=== PATIENT | male | born 1945 | race Caucasian/White ===

== ENCOUNTER 2018-09-10 12:34 | Emergency (ER) | payer OTHER, SELFPAY ==
[2018-09-10 12:47] VITALS: BP 186/99; PULSE 75; RESP 18; TEMP 37.1; O2SAT 97; BMI 29.5
--- NOTE | 2018-09-10 12:57 | ED_ITS ---
HPI - General Adult General Chief complaint: Hypertension Stated complaint: HIGH BP BETWEEN 170 AND 180, IRREGULAR HEARTBEAT Time Seen by Provider: 09/10/18 12:49 Source: patient Mode of arrival: ambulatory Limitations: no limitations History of Present Illness HPI narrative: Patient is a 73 year old male who presents with hypertension. He was at his doctor's office yesterday getting basal cell carcinoma removed he noticed it was elevated then of about 160. This morning he woke up took his blood pressure it was 170. He has no headache no chest pain of breath. He overall has been feeling well. He has been on the same dose of Benicar for multiple years without any changes need. His doctors in [place] he does not see him on a regular basis. He lives in [place] for 4 years but has not tried to get a physician here. He overall was very nervous about his blood pressure being elevated 2 days in a row. He has no headache no numbness no tingling. Related Data Home Medications Medication Instructions Recorded Confirmed olmesartan-hydrochlorothiazide 1 tab PO DAILY #0 06/25/16 09/10/18 [Benicar HCT] esomeprazole magnesium 40 mg 40 mg PO DAILY 12/23/17 09/10/18 capsule,delayed release acyclovir 400 mg PO DAILY 09/10/18 09/10/18 fluorouracil 1 applic TOPICAL DIRECTED 09/10/18 09/10/18 ketoconazole 1 applic TOPICAL DIRECTED 09/10/18 09/10/18 Allergies Allergy/AdvReac Type Severity Reaction Status Date / Time No Known Drug Allergies Allergy Verified 09/10/18 12:53 Review of Systems Review of Systems ROS Unobtainable: All systems reviewed & are unremarkable except as noted in HPI and below Constitutional Denies chills, Denies fever(s), Denies lethargy and Denies weakness Eyes Denies diplopia and Denies eye discharge Comments: Left subconjunctival hematoma ENT Ears, Nose, Mouth, and Throat: Denies change in voice, Denies neck pain and Denies sore throat Cardiovascular Denies chest pain, Denies irregular heart rhythm, Denies lightheadedness, Denies palpitations, Denies dyspnea, Denies dyspnea on exertion and Denies orthopnea Respiratory Denies cough, Denies dyspnea, Denies dyspnea on exertion and Denies wheezing Gastrointestinal Gastrointestinal: Denies abdominal pain, Denies change in bowel habits, Denies diarrhea, Denies nausea and Denies vomiting Genitourinary Denies hematuria, Denies flank pain, Denies urinary incontinence and Denies urinary urgency Musculoskeletal Denies neck pain Integumentary/Breasts Reports as per HPI Neurologic Denies weakness Endocrine Denies palpitations Allergic/Immunologic Denies wheezing PFSH Social History Smoking Status: Never smoker alcohol intake: current Social History Smoking Status: Never smoker alcohol intake: current Exam Initial Vital Signs Initial Vital Signs: Vital Signs Temperature 98.7 F 09/10/18 12:47 Pulse Rate 75 09/10/18 12:47 Respiratory Rate 18 09/10/18 12:47 Blood Pressure 186/99 H 09/10/18 12:47 Pulse Oximetry 97 09/10/18 12:47 GENERAL: Pleasant alert well-appearing elderly male no apparent distress and in no acute distress. HEENT: Head atraumatic,EOMI, pupils reactive, face symmetric, neck is supple CARDIOVASCULAR: Regular rate and rhythm without murmurs, rubs or gallops. RESPIRATORY: Breath sounds equal bilaterally, no wheezes rales or rhonchi. ABDOMEN: Soft, nontender. Normoactive bowel sounds all 4 quadrants. No guarding or rebound. EXTREMITIES: Normal range of motion, no clubbing or edema. Neurovascularly intact NEUROLOGICAL: Alert and oriented x4.Normal gait and speech. Cranial nerves II through XII grossly intact. Good [id number], good [id number], strength equal bilaterally, no dysarthria or aphasia, sensation in tact to soft touch bilaterally, no visual changes, no facial droop SKIN: Warm, dry, no laceration, no petechiae, no rashes or lesions. Course Orders Ordered: ED Orders 09/10/18 13:42 Complete Blood Count AUTO DIFF Stat Comprehensive Metabolic Panel Stat Lipase Stat Partial Thromboplastin Time Stat Prothrombin Time INR Stat Vital Signs - 8 hr 09/10/18 12:47 09/10/18 13:13 09/10/18 13:30 Temperature 98.7 F Pulse Rate 75 67 66 Respiratory Rate 18 Blood Pressure 186/99 H Blood Pressure [Right Arm] 158/82 H 157/82 H Pulse Oximetry 97 09/10/18 14:36 Temperature Pulse Rate 67 Respiratory Rate Blood Pressure Blood Pressure [Right Arm] 145/86 H Pulse Oximetry Medical Decision Making Lab Data Lab results reviewed: Yes I reviewed the patient's lab results. Result diagrams: 09/10/18 13:42 09/10/18 13:42 Lab Results 09/10/18 09/10/18 09/10/18 Range/Units 13:42 13:42 13:42 WBC 7.0 (4.5-11.0) X10^3/uL RBC 5.31 (4.5-5.9) X10^6/uL Hgb 16.8 (13.5-17.5) g/dL Hct 49.5 (41-53) % MCV 93.1 (80-100) fL MCH 31.7 (26-34) PG MCHC 34.0 (30-36) % RDW 14.5 (11.6-14.8) % Plt Count 146 L (150-400) X10^3/uL Neut % (Auto) 57.4 (50-75) % Lymph % (Auto) 28.2 (25-40) % [place] % (Auto) 11.1 (3-14) % Eos % (Auto) 2.3 (2-4) % Baso % (Auto) 1.0 (0-2) % Neut # (Auto) 4000 (5287-5204) /uL Lymph # (Auto) 2000 (3710-3177) /uL [place] # (Auto) 800 (0-900) /uL Eos # (Auto) 200 (0-450) /uL Baso # (Auto) 100 (0-100) /uL PT 12.2 (10.1-12.7) SECONDS INR 1.1 (0.9-1.3) APTT 34 (26.4-36.2) SECONDS Sodium 137 (137-145) mmol/L Potassium 4.2 (3.4-5.1) mmol/L Chloride 99 (98-107) mmol/L Carbon Dioxide 29 (22-32) mmol/L BUN 17 (9-20) mg/dL Creatinine 0.70 (0.66-1.25) mg/dL Estimated GFR > 60.0 (>60) mL/min BUN/Creatinine Ratio 24.3 H (6-22) Glucose 96 (80-110) mg/dL Calcium 9.3 (8.4-10.2) mg/dL Total Bilirubin 0.8 (0.2-1.3) mg/dL AST 80 H (17-59) IU/L ALT 123 H (21-72) IU/L Alkaline Phosphatase 110 (38-126) U/L Total Protein 7.8 (6.3-8.2) g/dL Albumin 4.5 (3.5-5.0) g/dL Globulin 3.3 (1.7-4.1) g/dL Albumin/Globulin Ratio 1.4 (1.0-2.8) Lipase 41 (23-300) U/L ECG Data Attestation: I personally reviewed and interpreted this ECG as follows: Prior ECG tracings: available for review Interpretation: Normal sinus rhythm rate [address] changes or T-wave inversions no priors to compare MDM Narrative Medical decision making narrative: Patient's blood pressure has actually improved since being in the ED he is asymptomatic except for his number. He and I discussed getting a local PCP to manage it. At this time he is completely asymptomatic without chest pain or headache. we discussed how to monitor at home and recorded. We also discussed warning symptoms and when to return to the ED. Discharge Plan Departure Patient Disposition: Home Clinical Impression: Hypertension Qualifiers: Hypertension type: essential hypertension Qualified Code(s): I10 - Essential (primary) hypertension Discharge Date/Time: 09/10/18 14:37 Interventions: ED Discharge Assessment Last Done: 09/10/18 14:36 Instructions: DI for High Blood Pressure Activity Restrictions/Additional Instructions: *You have been diagnosed with hypertension *What to do: Blood work today is reassuring. I recommend that you take your blood pressure all 1 daily same time every day and recorded. Her blood pressure medications may need to be adjusted by your PCP *Continue to take medications as directed *Follow up with your primary care provider in 2-3 days *Return to ER if you should have chest pain headache, weakness or any new, worsening or concerning symptoms Prescriptions: No Action esomeprazole magnesium [Nexium] 40 mg capsule,delayed release(DR/EC) 40 mg PO DAILY RF: 0 olmesartan-hydrochlorothiazide [Benicar HCT] 40 MG/12.5 MG tablet 1 tab PO DAILY Qty: 0 RF: 0 ketoconazole 2 % shampoo 1 applic topical DIRECTED RF: 0 fluorouracil 5 % cream 1 applic topical DIRECTED RF: 0 acyclovir 400 mg tablet 400 mg PO DAILY RF: 0 Referrals: [facility] [Provider Group] [facility] [Provider Group] [facility] [Provider Group]
[2018-09-10 13:13] VITALS: BP 158/82; PULSE 67
--- NOTE | 2018-09-10 13:19 | PC.NURSE ---
Two failed attempts at IV. As soon as patient was poked, he demanded they be removed and yelled at this RN. Charge nurse and Dr. Ko notified. Pt playing on phone and appears in no acute distress. Still denies any symptoms.
[2018-09-10 13:30] VITALS: BP 157/82; PULSE 66
[2018-09-10 13:51] LABS: Add Manual Diff / Slide Review NO; Basophils Absolute Auto 100 /uL (0-100); Eosinophils Absolute Auto 200 /uL (0-450); Eosinophils Percent Auto 2.3 % (2-4); Hematocrit 49.5 % (41-53); Hemoglobin 16.8 g/dL (13.5-17.5); Lymphocytes Absolute Auto 2000 /uL (1100-4500); Lymphocytes Percent Auto 28.2 % (25-40); Mean Corpuscular Hemoglobin 31.7 PG (26-34); Mean Corpuscular Volume 93.1 fL (80-100); Monocytes Absolute Auto 800 /uL (0-900); Monocytes Percent Auto 11.1 % (3-14); Neutrophils Absolute Auto 4000 /uL (1500-7000); Neutrophils Percent Auto 57.4 % (50-75); Platelet Count 146 X10^3/uL (150-400); Red Blood Cell Count 5.31 X10^6/uL (4.5-5.9); Red Cell Distribution Width 14.5 % (11.6-14.8)
[2018-09-10 13:59] LABS: INR 1.1 (0.9-1.3); Prothrombin Time 12.2 SECONDS (10.1-12.7)
[2018-09-10 14:02] LABS: PTT Partial Thromboplastin Tim 34 SECONDS (26.4-36.2)
[2018-09-10 14:04] LABS: Alanine Aminotransferase 123 IU/L (21-72); Albumin 4.5 g/dL (3.5-5.0); Albumin Globulin Ratio 1.4 (1.0-2.8); Alkaline Phosphatase 110 U/L (38-126); Aspartate Aminotransferase 80 IU/L (17-59); BUN Creatinine Ratio 24.3 (6-22); Bilirubin Total 0.8 mg/dL (0.2-1.3); Blood Urea Nitrogen 17 mg/dL (9-20); Calcium 9.3 mg/dL (8.4-10.2); Carbon Dioxide 29 mmol/L (22-32); Chloride 99 mmol/L (98-107); Estimated Glomerular Filt Rate > 60.0 mL/min (>60); Globulin 3.3 g/dL (1.7-4.1); Glucose 96 mg/dL (80-110); HEMOLYSIS < 15 (0-50); Lipase 41 U/L (23-300); Potassium 4.2 mmol/L (3.4-5.1); Sodium 137 mmol/L (137-145); Total Protein 7.8 g/dL (6.3-8.2)
[2018-09-10 14:36] VITALS: BP 145/86; PULSE 67
== END 2018-09-10 14:37 | disposition home or self-care (01) ==
PROVIDERS: Emergency Provider Emergency Medicine
DX: I10 Essential (primary) hypertension (principal); R00.8 Other abnormalities of heart beat
CPT/HCPCS: 80053; 83690; 85025; 85610; 85730; 93005; 93010; 99283

== ENCOUNTER → 2019-07-21 08:26 | Outpatient (CLI) | payer OTHER, SELFPAY ==
--- NOTE | 2019-07-21 08:48 | DI.RAD.S_ITS ---
PROCEDURE: XR CHEST 2V INDICATIONS: cough TECHNIQUE: 2 views of the chest were acquired. COMPARISON: None. FINDINGS: Surgical changes and devices: None. Lungs and pleura: Lungs are clear. No pleural effusions or pneumothorax. Mediastinum: Mediastinal contours are normal. Heart size is normal. Bones and chest wall: No suspicious bony abnormalities. Soft tissues appear unremarkable. IMPRESSION: Normal for age, source of current cough symptoms is not seen. Dictated by: Candelario Orozco M.D. on 07/21/2019 at 10:24 Approved by: Candelario Orozco M.D. on 07/21/2019 at 10:24
[2019-07-21 09:25] LABS: INR 1.1 (0.9-1.3); Prothrombin Time 12.8 SECONDS (10.1-12.7)
[2019-07-21 09:31] LABS: Alanine Aminotransferase 85 IU/L (<50); Albumin 4.3 g/dL (3.5-5.0); Albumin Globulin Ratio 1.3 (1.0-2.8); Alkaline Phosphatase 144 U/L (38-126); Aspartate Aminotransferase 56 IU/L (17-59); Bilirubin Total 0.7 mg/dL (0.2-1.3); Bilirubin Unconjugated 0.7 mg/dL (0.0-1.1); Cholesterol 143 mg/dL (140-199); Creatine Kinase 51 U/L (55-170); Globulin 3.3 g/dL (1.7-4.1); HDL Cholesterol 36 mg/dL (40-60); HEMOLYSIS < 15 (0-50); LDL Cholesterol Calculated 81 mg/dL (<100); Total Protein 7.6 g/dL (6.3-8.2); Triglycerides 128 mg/dL (35-150)
[2019-07-21 09:50] LABS: HEMOLYSIS 16 (0-50); Iron 116 ug/dL (49-181)
[2019-07-21 10:01] LABS: Percent Iron Saturation 41 % (20-50); Total Iron Binding Capacity 281 ug/dL (261-462); Transferrin 218 mg/dL (206-381)
[2019-07-21 10:22] LABS: TSH w/ Reflex to FT4 2.81 uIU/mL (0.47-4.68)
[2019-07-21 10:26] LABS: Hepatitis B Surface Antigen NEGATIVE s/c (NEGATIVE)
[2019-07-21 10:44] LABS: Hep C Virus Ab w/Reflex Quant NEGATIVE s/c (NEGATIVE)
[2019-07-22 13:49] LABS: Ceruloplasmin 23 mg/dL (18-36)
[2019-07-23 15:26] LABS: Hepatitis B Surf Ab Qualitativ Nonreactive (Nonreactive)
[2019-07-24 03:48] LABS: Albumin 3.8 g/dL (3.8-4.8); Alpha 1 Globulin 0.3 g/dL (0.2-0.3); Alpha 2 Globulin 0.8 g/dL (0.5-0.9); Beta 1 Globulin 0.4 g/dL (0.4-0.6); Gamma Globulin 1.1 g/dL (0.8-1.7); Protein, Total 6.8 g/dL (6.1-8.1)
[2019-07-24 08:31] LABS: ANA Screen, IFA NEGATIVE (NEGATIVE)
== END ==
PROVIDERS: PCP Internal Medicine; Referring Provider Internal Medicine; Visit Provider Internal Medicine
DX: Z13.220 Encounter for screening for lipoid disorders (principal); I10 Essential (primary) hypertension; J30.9 Allergic rhinitis, unspecified; K76.0 Fatty (change of) liver, not elsewhere classified; R74.8 Abnormal levels of other serum enzymes; Z13.6 Encounter for screening for cardiovascular disorders; K21.9 Gastro-esophageal reflux disease without esophagitis; R05 Cough
CPT/HCPCS: 36415; 71046; 80061; 80076; 82390; 82550; 83540; 83550; 84155; 84165; 84443; 85610; 86038; 86255; 86706; 86803; 87340

== ENCOUNTER → 2019-11-14 09:12 | Outpatient (CLI) | payer OTHER, SELFPAY ==
[2019-11-15 01:05] LABS: COVID19 Sendout Not Detected (Not Detect)
== END ==
PROVIDERS: PCP Internal Medicine; Visit Provider Physician Assistant
DX: Z01.812 Encounter for preprocedural laboratory examination (principal)
CPT/HCPCS: 87635

== ENCOUNTER 2019-11-16 08:45 | Day surgery (SDC) | payer OTHER, SELFPAY ==
[2019-11-16] VITALS (10 sets, daily range): BP systolic 124–161; BP diastolic 56–99; PULSE 63–74; RESP 8–20; TEMP 36.3–37.1; O2SAT 90–97; BMI 32.5
[2019-11-16] MEDS: LACTATED RINGERS 1,000 ML 200 ML IV (09:19)
--- NOTE | 2019-11-16 09:44 | PM.PREOP ---
Pre-operative Note COVID-19 COVID-19 status: Negative Result date/Date tested (Pos, Neg/Pending): 11/14/19 Interval Note History & Physical reviewed/Exam performed by Physician: Yes Changes to H&P: No ASA Class (for procedural sedation): II
--- NOTE | 2019-11-16 09:56 | PM.OP.ENDO ---
Operative Date/Time/Diagnoses Date of procedure: 11/16/19 Time of procedure: 09:56 Pre-op diagnosis: Gastroesophageal reflux Post-op diagnosis: same Procedure & Clinicians Study performed: Esophagoduodenoscopy Same procedure as scheduled: Yes Indications: 74-year-old man with longstanding gastroesophageal reflux disease he is having occasional episodes of breakthrough reflux despite PPI Surgeon: Frank Castano Procedure Notes SCOAP/Timeout: Performed Procedure in detail: Patient placed in left lateral decubitus position. Time out was performed. Procedural sedation was administered with Versed and Fentanyl. A bite block was placed. the scope was inserted into the mouth and advanced through the esophagus and into the stomach. The pylorus was intubated and the duodenum was normal to the level of the 2nd portion. The scope was retroflexed within the stomach and there was a small hiatal hernia. No ulcers, or gastritis. The scope was withdrawn into the esophagus the Z line was seen at 35 cm from the incisions. There was no reina's esophagitis or masses or strictures. Stomach was desufflated and scope removed. Patient tolerated procedure well. Sedation minutes: 10 Findings: hiatal hernia Specimen(s): none sent Complications: none Impression: Hiatal hernia Post-procedure Recommendations: Reflux diet and Continue medication(s) (Omeprazole 40 mg daily) Disposition: same day surgery
[2019-11-16] MEDS: LIDOCAINE 4% SOLN 50 ML 20 ML TOP (10:00)
[2019-11-16] MEDS: MIDAZOLAM 5 MG/5 ML VIAL IV (10:00)
[2019-11-16] MEDS: fentaNYL 250 MCG/5 ML INJ IV (10:01)
--- NOTE | 2019-11-16 11:12 | SUR.PHASEII ---
Pt up and ambulating completely awake at 1040. O2 removed and pt maintaining sats without problems, at bs now and pt getting dressed. Pt dcd at 1052 via wc in stable condition and no c/o. All d/c instructions given and pt verbalizes understanding
== END 2019-11-16 10:52 | disposition home or self-care (01) ==
PROVIDERS: PCP Internal Medicine; Referring Provider Surgery; Visit Provider Surgery
PROC: 0DJ08ZZ Inspection of Upper Intestinal Tract, Via Natural or Artificial Opening Endoscopic (ICD-10-PCS; CPT 43235; principal; 2019-11-16 10:00)
DX: K21.9 Gastro-esophageal reflux disease without esophagitis (principal); K44.9 Diaphragmatic hernia without obstruction or gangrene; I10 Essential (primary) hypertension; E66.9 Obesity, unspecified; Z68.34 Body mass index [BMI] 34.0-34.9, adult
CPT/HCPCS: 43235; 99152; J2250; J3010

== ENCOUNTER → 2019-12-22 17:44 | Outpatient (CLI) | payer OTHER, SELFPAY ==
[2019-12-22 19:59] LABS: COVID19 -Nasal RAPID Negative (Negative)
== END ==
PROVIDERS: PCP Internal Medicine; Visit Provider Physician Assistant
DX: Z11.59 Encounter for screening for other viral diseases (principal)
CPT/HCPCS: 87635

== ENCOUNTER → 2020-04-01 11:50 | Outpatient (CLI) | payer OTHER, SELFPAY | PROVIDERS: PCP Internal Medicine; Referring Provider Internal Medicine; Visit Provider Internal Medicine | DX: M85.80 Other specified disorders of bone density and structure, unspecified site (principal); R29.890 Loss of height | CPT/HCPCS: 77080 ==

== ENCOUNTER → 2020-04-13 14:00 | Outpatient (CLI) | payer OTHER, SELFPAY ==
[2020-04-13 15:48] LABS: COVID19 -Nasal RAPID Negative (Negative)
== END ==
PROVIDERS: PCP Internal Medicine; Visit Provider Physician Assistant
DX: Z11.59 Encounter for screening for other viral diseases (principal)
CPT/HCPCS: 87635

== ENCOUNTER → 2020-05-12 09:25 | Outpatient (CLI) | payer OTHER, SELFPAY ==
[2020-05-12 09:57] LABS: COVID19 -Nasal RAPID POSITIVE (Negative)
== END ==
PROVIDERS: PCP Internal Medicine; Visit Provider Physician Assistant
DX: U07.1 COVID-19 (principal)
CPT/HCPCS: 87635

== ENCOUNTER → 2021-12-20 15:56 | Outpatient (CLI) | payer OTHER, SELFPAY ==
[2021-12-20 16:47] LABS: COVID19 -Nasal RAPID Negative (Negative)
== END ==
PROVIDERS: PCP Internal Medicine; Visit Provider Physician Assistant
DX: Z20.822 Contact with and (suspected) exposure to COVID-19 (principal)
CPT/HCPCS: 87635

== ENCOUNTER → 2022-03-29 11:34 | Outpatient (CLI) | payer OTHER, SELFPAY ==
--- NOTE | 2022-03-29 11:36 | DI.RAD.S_ITS ---
PROCEDURE: XR CHEST 2V INDICATIONS: persistent dry cough, course lung sounds TECHNIQUE: 2 views of the chest were acquired. COMPARISON: [facility], CR, XR CHEST 2V, 07/21/2019, 8:55. FINDINGS: Surgical changes and devices: None. Lungs and pleura: Lungs are clear. No pleural effusions or pneumothorax. Mediastinum: Mediastinal contours are normal. Heart size is normal. Bones and chest wall: No suspicious bony abnormalities. Soft tissues appear unremarkable. IMPRESSION: No acute process. Dictated by: Nahed Bean M.D. on 03/29/2022 at 11:56 Approved by: Nahed Bean M.D. on 03/29/2022 at 11:56
== END ==
PROVIDERS: PCP Internal Medicine; Referring Provider Student in an Organized Health Care Education/Training Program; Visit Provider Student in an Organized Health Care Education/Training Program
DX: R05.3 Chronic cough (principal)
CPT/HCPCS: 71046